=== PATIENT | male | born 1990 | race Caucasian/White ===

== ENCOUNTER 2017-04-18 11:15 | Outpatient (CLI) | payer OTHER | END 2017-04-18 11:16 | disposition home or self-care (01) | LOC: SC 11:15 | PROVIDERS: ATTEND Internal Medicine Pulmonary Disease | DX: G47.30 Sleep apnea, unspecified (principal); G47.10 Hypersomnia, unspecified; G47.8 Other sleep disorders; R06.83 Snoring | CPT/HCPCS: 99203; 99212 ==

== ENCOUNTER 2017-07-01 19:32 | Outpatient (CLI) | payer OTHER | END 2017-07-01 19:33 | disposition home or self-care (01) | LOC: SC 19:32 | PROVIDERS: ATTEND Internal Medicine Pulmonary Disease | DX: G47.61 Periodic limb movement disorder (principal) | CPT/HCPCS: 95810 ==

== ENCOUNTER 2017-07-31 14:30 | Outpatient (CLI) | payer OTHER | END 2017-07-31 14:31 | disposition home or self-care (01) | LOC: SC 14:30 | PROVIDERS: ATTEND Internal Medicine Pulmonary Disease | DX: G47.61 Periodic limb movement disorder (principal) | CPT/HCPCS: 99212; 99213 ==